=== PATIENT | male | born 1985 | race Caucasian/White ===

== ENCOUNTER 2017-03-05 13:23 | Emergency (ER) | payer OTHER ==
[2017-03-05] MEDS ORDERED: OXYCODONE-ACETAMINOPHEN 5-325 MG TABLET PO ONE (13:51)
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
[2017-03-05 15:11] VITALS: BP 112/64
== END 2017-03-05 14:56 | disposition home or self-care (01) ==
LOC: ER 13:23
DX: M54.5 Low back pain (principal); V49.40XA Driver injured in collision with unspecified motor vehicles in traffic accident, initial encounter; F17.200 Nicotine dependence, unspecified, uncomplicated
CPT/HCPCS: 72070; 72110; 99283